=== PATIENT | female | born 1995 | race Caucasian/White ===

== ENCOUNTER 2024-05-25 13:57 | Outpatient (CLI) | payer OTHER, SELFPAY ==
--- NOTE | 2024-05-25 14:00 | CRLHL7_ITS ---
For Patients: As a result of the Century Cures Act, medical imaging exams and procedure reports are released immediately into your electronic medical record. You may view this report before your referring provider. If you have questions, please contact your health care provider. INDICATION: Dating and viability of . TECHNIQUE: Ultrasound OB pelvis transabdominal and transvaginal. Real-time rdz-scale imaging of the pelvis was performed. COMPARISON: None. FINDINGS: There is a single intrauterine gestation. The embryo demonstrates a regular cardiac rate measuring 178 beats per minute. The embryo`s crown rump length measurement of 2.0 cm corresponds to a gestational age of 8 weeks, 4 days with a sonographic due date of December 31, 2024. There is a normal appearing yolk sac. There are no gross abnormalities noted within the embryo at this early state of development. The placenta has not yet developed. There is subchorionic hemorrhage measuring 2.1 x 0.3 x 1.1 cm. Both ovaries have normal appearances. The right measures 3.7 x 1.9 x 2.4 cm and the left measures 2.6 x 1.4 x 2.3 cm. There are no suspicious fluid collections noted in the cul-de-sac. IMPRESSION: 1. Single viable intrauterine with an estimated gestational age of 8 weeks, 4 days and a heart rate of 178 beats per minute. 2. Subchorionic hemorrhage measuring 2.1 x 0.3 x 1.1 cm. Dictated by Ortega Ashley MD @ 05/26/2024 10:01:58 AM (Electronically Signed)
== END 2024-05-25 13:58 | disposition home or self-care (01) ==
LOC: US 13:57
PROVIDERS: Visit Provider Advanced Practice Midwife
DX: Z34.91 Encounter for supervision of normal pregnancy, unspecified, first trimester (principal); O20.9 Hemorrhage in early pregnancy, unspecified; Z3A.08 8 weeks gestation of pregnancy
CPT/HCPCS: 76817

== ENCOUNTER 2024-05-25 15:37 | Outpatient (CLI) | payer OTHER, SELFPAY | END 2024-05-25 15:38 | disposition home or self-care (01) | PROVIDERS: PCP Advanced Practice Midwife; Visit Provider Advanced Practice Midwife | DX: O20.9 Hemorrhage in early pregnancy, unspecified (principal); Z3A.08 8 weeks gestation of pregnancy | CPT/HCPCS: 83020; 83021; 85660; 86592; 86703; 86704; 86706; 86762; 86787; 86803; 86850; 86900; 86901; 87086; 87340 ==

== ENCOUNTER 2024-06-08 15:29 | Emergency (ER) | payer OTHER, SELFPAY ==
[2024-06-08] VITALS (17 sets, daily range): BP systolic 117–131; BP diastolic 71–85; PULSE 71–90; RESP 16; TEMP 36.6; O2SAT 97–99; BMI 37.8
--- OUTSIDE RECORDS SUMMARY | 2024-06-08 17:05 | XMS_ITS | Clinical Summary ---
Author Organization [facility] Address [place], [place] [address] Care Team Providers Care Medical Professionals Name Role Phone Clinic, No Pcp Or Primary Care Provider Unavaila ble Allergies Active Allergy Reactions Criticality Noted Date Comments Latex Rash Low 2011 Medications levonorgestrel (Kyleena) 17.5 mcg/24 hrs (5 yrs) 19.5 mg intrauterine device (IUD) Inject 1 Each intrauterine . Active dicloxacillin (DYNAPEN) 500 mg capsule TAKE 1 CAPSULE BY MOUTH EVERY 6 HOURS DIRECTED 1 Active ondansetron (ZOFRAN ODT) 4 mg disintegrating tabletIndications:V omiting and diarrhea Place 1 Tablet (4 mg) on the tongue every 8 hours if needed for Nausea/Vomit ing. 10 Tablet 2 Active Active Problems Problem Noted Date Diagnosed Date Pyelonephritis 02/03/2016 Family History Medical History Relation Name Comments Good Health Brother 3 Good Health Father Good Health Mother Relation Name Status Comments Brother 1 Alive Brother 2 Alive Brother 3 Father Alive Mother Alive Social History Tobacco Use Types Packs/Day Years Used Date Smoking Tobacco: Never Smokeless Tobacco: Never Tobacco Cessation:Counseling Given: No Alcohol Use Standard Drinks/Week Comments Never 0 (1 standard drink = 0.6 oz pur e alcohol) Social Connections Answer Date Recorded Frequency of Communication with Friends and Fami ly 0 10/16/2023 Financial Resource Strain Answer Date R ecorded Difficulty of Paying Living Expenses 3 10/16/2023 Difficulty of Paying Living Expenses Not on file 10/16/2023 Food Insecurity Answer Date Recorded Worried About Running Out of Food in the Last Ye ar 1 10/16/2023 Transportation Needs Answer Date Record ed Lack of Transportation (Medical) 1 10/16/2023 Housing Stability Answer Date Recorded Unable to Pay for Housing in the Last Year 1 10/16/2023 Comments No Sex and Gender Information Value Date Recorded Sex Assigned at Not on file Legal Sex Female 7:01 AM INFANTRY INDIRECT [employer] Gender Identity Not on file Sexual Orientation Not on file Obstetrics History Last Filed Vital Signs Vital Sign Reading Time Taken Comments Blood Pressure 124/83 04/11/2023 5:36 PM INFANTRY INDIRECT [employer] CREWMEMBER Pulse 91 04/11/2023 5:33 PM INFANTRY INDIRECT [employer] CREWMEMBER Temperature 36.3 C (97.3 F) 04/11/2023 5:33 PM INFANTRY INDIRECT [employer] CREWMEMBER Respiratory Rate 14 04/11/2023 5:33 PM INFANTRY INDIRECT FIRE CREWMEMBER Oxygen Saturation 96% 04/11/2023 5:33 PM INFANTRY INDIRECT FI[employer] CREWMEMBER Inhaled Oxygen Concentration - - Weight 89.8 kg (198 lb) 04/11/2023 5:33 PM INFANTRY INDIRECT [employer] CREWMEMBER Height 162.6 cm (5' 4) 04/11/2023 5:33 PM INFANTRY INDIRECT FI[employer] CREWMEMBER Body Mass Index 33.99 04/11/2023 5:33 PM INFANTRY INDIRECT FIRE CREWMEMBER Plan of Treatment Health Maintenance Due Date Last Done Comments Tdap 09/03/2007 Depression screening for age 12+ 2008 HIV for age 15-65 09/03/2011 Hepatitis C screening for ag e 18-79 2014 Tetanus booster 2016 Pap test for age 21-65 2017 COVID-19 vaccine series ( season) 2024 06/16/2021, 07/30/2020, 07/01/2020 Influenza for age 9-49 02/02/2024 BMI (ht and wt on same day) for age 18+ 04/11/2024 04/11/2023 Pneumococcal series for age 6-49 Aged Out No longer eligible b ased on patient's age to complete this topic Insurance [facility] [id number] [place] [id number] Advance Directives * Full Code (Latest Code Status on File) Date Activated Date Inactivated Comments 02/03/2016 2:53 PM 02/05/2016 12:35 PM Question Answer Comments Code Status Discussion: Not Discussed Care Teams Medical Professionals Relationship Specialty Start Date End Date Clinic, No Pcp Or . PCP - General 04/09/22
--- OUTSIDE RECORDS SUMMARY | 2024-06-08 17:05 | XMS_ITS | Clinical Summary ---
Author Organization [facility] [employer] Address [address] [place] [address] Care Team Providers Care Site Supervisor Name Role Phone Pcp, Pt Declines MD Primary Care Provider [phone] Source Comments You are receiving this document as you are listed as the primary care provider,follow-up provider, or the patient has been referred to you for consultation.This is in compliance with the Medicare and[facility] EHR Incentive Program,which states Providers who transition their patient to another setting of careor provider of care or refers their patient to another provider of care shouldprovide summary care record for each transition of care or referral. [facility] Allergies Active Allergy Reactions Criticality Noted Date Comments Latex Rash 10/04/2020 Medications Medication Sig Dispensed Refills Start Date End Date Status levonorgestrel (KYLEENA) 19.5 MG IUD 1 Each by Intrauterine route once. Active dicloxacillin (DYNAPEN) 500 MG capsule TAKE 1 CAPSULE BY MOUTH EVERY 6 HOURS DIRECTED 11/10/2020 Active Active Problems No known active problems Immunizations Name Administration Dates Next Due 9vHPV (Gardasil 9) 09/17/2017 Family History Medical History Relation Name Comments Cancer Father Prostate Clotting Disorder Maternal Grandmother S he didn't clot Spont Abortions Maternal Grandmother Stroke Maternal Grandmother Thyroid Disorder Maternal Grandmother High Cholesterol Paternal Grandfather High Cholesterol Paternal Grandmother Relation Name Status Comments Father Maternal Grandmother Paternal Grandfather Paternal Grandmother Social History Tobacco Use Types Packs/Day Years Used Date Smoking Tobacco: Never Smokeless Tobacco: Never Alcohol Use Standard Drinks/Week Comments Yes 0 (1 standard drink = 0.6 oz pur e alcohol) less than 5 drinks month Sex and Gender Information Value Date Recorded Sex Assigned at Female 12/13/2020 7:26 AM CDT Gender Identity Female 12/13/2020 7:26 AM CDT Sexual Orientation Straight 12/13/2020 7: 26 AM CDT Last Filed Vital Signs Vital Sign Reading Time Taken Comments Blood Pressure 136/78 01/08/2021 2:25 PM CDT Pulse 91 01/08/2021 2:25 PM CDT Temperature 37.1 C (98.8 F) 01/08/2021 2:25 PM CDT Respiratory Rate 16 01/08/2021 2:25 PM CDT Oxygen Saturation 97% 01/08/2021 2:25 PM CDT Inhaled Oxygen Concentration - - Weight - - Height - - Body Mass Index - - Plan of Treatment Health Maintenance Due Date Last Done Comments IPV (Polio) (3 of 3 - 4-dose series) 07/29/2002 01/26/2002, 11/25/2000 HepB (1) 09/03/2015 Adult Preventive Visit 10/04/2022 10/04/2020 Cervical Cancer Screening 10/05/2023 10/04/2020 COVID-19 Vaccine ( season) 2024 07/30/2020, 07/01/2020 Influenza (#1) 2024 DTaP/Tdap/Td (4 - Tdap) 09/18/2027 09/18/19 18, 01/26/2002, 11/25/2000 Zoster/Shingles (1 of 2) 2046 MCV4 Aged Out 09/17/2017 No longer eligi ble based on patient's age to complete this topic HPV Vaccine Completed 07/10/2018, 12/30/2017, 09/17/2017 HepA Aged Out 02/10/2019, 08/01/2018 No longer eligible based on patient's age to complete this topic Chlamydia Discontinued 10/04/2020 HIV Screening (Preventive Services) Completed 10/04/2020 Hep C Screening (Preventive Services) Completed 10/04/2020 Hib Aged Out No longer eligi ble based on patient's age to complete this topic Pneumococcal Aged Out No longer eligi ble based on patient's age to complete this topic Procedures Procedure Name Priority Date/Time Associated Diagnosis Comments HIV 1/2 AG/AB 4TH GEN Routine 10/04/2020 5:09 PM CDT Screen for STD (sexually transmitted disease) HEPATITIS C ANTIBODY, WITH REFLEX Routine 10/04/2020 5:09 PM CDT Screen for STD (sexually transmitted disease) CHLAMYDIA & GC (14 YEARS & OLDER) Routine 10/04/2020 5:03 PM CDT Screen for STD (sexually transmitted disease) PAP TEST Routine 10/04/2020 5:03 PM CDT Cervical cancer screening from Last 3 Months or Most Recently Relevant to Health Maintenance Results * HIV 1/2 Ag/Ab 4th Generation (10/04/2020 5:09 PM CDT) HIV 1/2 Antigen/Antib mian (4th generation) Negative (Non Reactive) Negative (Non Reactive) 10/04/2020 6:12 PM CDT [facility] Comment:HIV-1 p24 Antigen an d HIV-1/HIV-2 Antibody not detected Blood Venipuncture / Unknown 10/04/2020 5:09 PM CDT 10/04/2020 5:22 PM CDT Cecilia Barr APRN, [facility] [address] * Hepatitis C Antibody [HCAB] (10/04/2020 5:09 PM CDT) Hepatitis C Antibody Negative (Non Reactive) Negative (Non Reactive) 10/04/2020 6:12 PM CDT [facility] Comment:Antibodies to HCV no t detected. Does not exclude the possiblity of exposure to HCV. Blood Venipuncture / Unknown 10/04/2020 5:09 PM CDT 10/04/2020 5:22 PM CDT Cecilia Barr APRN, [facility] [id number] [facility] [address] * PAP Test (10/04/2020 5:03 PM CDT) Case Report Pap Case: [id number] Authorizing Provider: Cecilia Barr APRN, Collected: 10/04/2020 1703 [employer] [facility] Received: 10/04/2020 1802 Obstetrics/Gynec ology First Screen: Kaela Laws CT (ASCP) Specimen: Pap Test, Routine, Cervix/Endocervix 10/07/2020 11:50 AM CDT [facility] Pap Specimen Adequacy Satisfactory for evaluation, endocervical/marte sformation zone component present. 10/07/2020 11:50 AM CDT [facility] Pap Interpretation Negative for intraepithelial lesion or malignancy (NILM). 10/07/2020 11:50 AM CDT [facility] Pap Disclaimer The Pap test is a screening test designed to aid in the detection of cervical cancer and its precursor lesions. It is not a diagnostic procedure and should not be used as the sole means of detecting cervical cancer. Both false-positive and false-negative results may occur. 10/07/2020 11:50 AM CDT [facility] Gross Description The specimen is received in SurePath fixative and properly labeled. 1 Pap-stained SurePath slide is prepared. 10/07/2020 11:50 AM CDT [facility] Embedded Images 11:50 AM CDT [facility] Other Specimen Type ENTIRE ENDOCERVIX / Unknown 10/04/2020 5:03 PM CDT 10/04/2020 6:02 PM CDT Comment:LMP: Patient's last menstrual period was 09/19/2020. Cecilia Barr APRN, [facility] PATHOLOGY Performing Organization Address City/[facility]/ZIP Co de Phone Number [facility] [address] [place] [address], [facility] * Chlamydia and GC STD (10/04/2020 5:03 PM CDT) Chlamydia Trachomatis STD Not Detected Not Detected 10/04/2020 11:59 PM CDT [email or web address] [employer] [facility] N. gonorrhoeae STD Not Detected Not Detected 10/04/2020 11:[address] [facility] Swab STD ENTIRE ENDOCERVIX / Unknown Non-blood Collection / Unknown 10/04/2020 5:03 PM CDT 10/04/2020 5:[address] [facility] - 10/04/2020 11:59 PM CDT Test performed by [employer] Med[employer] Amplification (TMA). Cecilia Barr APRN, [facility] [facility]_1 Performing Organization Address City/State/[facility] Co de Phone Number [email or web address] [employer] [facility] [address] [id number] [phone] from Last 3 Months or Most Recently Relevant to Health Maintenance Care Teams Site Supervisor Relationship Specialty Start Date End Date Pcp, [place] [address] PCP - General 01/08/21
[2024-06-08 17:24] LABS: Basophils Absolute Auto 0.03 K/uL (0.00-0.30); Basophils Percent Auto 0.5 % (0.0-3.0); Eosinophils Absolute Auto 0.07 K/uL (0.00-0.50); Eosinophils Percent Auto 1.2 % (0.0-7.0); Hematocrit 38.6 % (33.0-51.0); Hemoglobin* 12.9 gm/dL (12.0-16.0); Immature Granulocytes Abs Auto 0.02 K/uL (0.00-0.30); Immature Granulocytes Pct Auto 0.3 %; Lymphocytes Absolute Auto 1.79 K/uL (0.90-2.90); Lymphocytes Percent Auto 30.7 % (20-44); Mean Corpuscular HGB Conc 33 gm/dL (32-36); Mean Corpuscular Hemoglobin 29 pg (26-34); Mean Corpuscular Volume 88 fL (80-100); Monocytes Percent Auto 14.4 % (0.0-11.0); Neutrophils Absolute Auto 3.08 K/uL (1.7-7.0); Neutrophils Percent Auto 52.9 % (42.0-72.0); Platelet Count* 158 K/uL (140-440); RDW Coefficient of Variation % 11.8 % (11.5-15.5); White Blood Count* 5.83 K/uL (4.50-11.00)
[2024-06-08] MEDS: LACTATED RINGERS 1000 ML 1,000 ML IV (17:25)
[2024-06-08 17:39] LABS: Chloride* 106 mmol/L (96-114)
[2024-06-08 17:40] LABS: Potassium* 3.5 mmol/L (3.6-5.1); Sodium* 134 mmol/L (135-149)
[2024-06-08 17:42] LABS: Creatinine* 0.4 mg/dL (0.5-1.5); Est. Creatinine Clearance* 182.43; Estimated Glomerular Filt Rate 139 ml/min
[2024-06-08 17:43] LABS: Anion Gap 7 mEq/L (7-15); Blood Urea Nitrogen* 8 mg/dL (5-24); Calcium* 8.7 mg/dL (8.4-10.6); Carbon Dioxide* 21 mmol/L (20-32); Glucose* 98 mg/dL (60-115)
[2024-06-08 18:03] LABS: PCR FLU A Negative PCR FLU A (Negative); PCR FLU B Negative PCR FLU B (Negative); PCR RSV Negative PCR RSV (Negative); SARS PCR* Negative SARS-CoV-2 (Negative)
[2024-06-08 18:08] LABS: Slide Review Reflex No
--- NOTE | 2024-06-08 19:07 | ED.SYNCOPE ---
HPI - Syncope General Date Seen: 06/08/24 Chief Complaint: Dizziness/Vertigo Stated Complaint: dizzy, almost fainted last night Time Seen by Provider: 06/08/24 16:22 Source: patient Mode of arrival: ambulatory Limitations: no limitations History of Present Illness HPI narrative: Patient is a 28-year-old female presenting to the emergency department for lightheadedness. She states last night she did a blood test were you Dry her own blood and send into a lab to find of the gender of her child. She is 10 weeks and this is her 1st . Has had a normal outpatient ultrasound and no other issues with the other than some mild vomiting. States after she did this test she is feeling very lightheaded like she was going to pass out. Symptoms were not improving at all today. Since they are persisting she will was told to come to the emergency department and she called the triage line. Has states she has had symptoms like this before multiple times but usually she passes out and symptoms go way about 30 seconds after that and she feels back to normal. Denies fevers, chills, cough, shortness of breath, weakness, abdominal pain, lightheadedness, dizziness, nausea. Does states she is feels like she has some mild chest pressure. No history of sudden cardiac in her family. No other concerns noted. Related Data Home Medications ?Medication ?Instructions ?Recorded ?Confirmed vit 168-iron 27 mg-folic cap PO 05/25/24 05/25/24 acid 800 mcg-omega3 235 mg capsule (One-A-Day -1) Allergies Allergy/AdvReac Type Severity Reaction Status Date / Time Latex, Natural Rubber Allergy Mild Rash Verified 05/25/24 14:57 Review of Systems Status of ROS: Reports: 10 or more systems reviewed and unremarkable except as noted in History and below [facility] Medical History Pyelonephritis ?N12 - Tubulo-interstitial nephritis, not specified as acute or chronic (ICD-10) Surgical History History of adenoidectomy ?Z90.89 - Acquired absence of other organs (ICD-10) [place] teeth extracted ?K08.409 - Partial loss of teeth, unspecified cause, unspecified class (ICD-10) History of tonsillectomy ?Z90.89 - Acquired absence of other organs (ICD-10) Family History Mother High blood pressure Father Prostate cancer Social History What is your current living situation?: I presently have a place to live Problems where you live: no known problems In the past 12 months, utilities in danger of being shut off: no In past 12 months, lack of transportation kept you from medical appts, meetings, work, or getting things needed for daily living: no In the past 12 mos, have been you worried that your food would run out before you had money to buy more?: never true In the past 12 mos, the food you bought just didn't last and you didn't have money to buy more?: never true Do you use any of these nicotine containing products: None How often do you have a drink containing alcohol: never AUDIT-C Alcohol total score: 0 Non-prescribed substance use: denies use How often does anyone, including family, friends and others, physically hurt you: never How often does anyone, including family, friends and others, insult or talk down to you: never How often does anyone, including family, friends and others, threaten you with harm: never How often does anyone, including family, friends and others, scream or curse at you: never Exam Narrative: Exam Narrative: Const: Well-nourished, Well-developed, in mild distress Eyes: PERRL, no conjunctival injection, and symmetrical lids HENT: Atraumatic external nose and ears. Moist mucous membranes. Neck: Symmetric, trachea midline, No thyromegaly. CVS: RRR, No murmurs or gallops. Peripheral pulses 2+ and equal in all extremities RESP: Unlabored respiratory effort. Clear to auscultation bilaterally. GI: Nontender/Nondistended, No rebound or guarding. MSK:Extremities w/o deformity, Normal Active ROM Skin: Warm, Dry. No rashes or lesions. Neuro: Normal Muscle tone, No focal neurological deficits. Psych: Awake, Alert, & Oriented x3. Appropriate mood and affect. Const: Vital Signs, click to edit/add: Vital Signs - 24 hr 06/08/24 15:50 06/08/24 17:12 06/08/24 17:20 Temperature 97.9 F Pulse Rate [Pulse Oximeter] 86 Pulse Rate [orthos tatic sitting Puls e Oximeter] Pulse Rate [orthos tatic sitting Righ t Pulse Oximeter] Pulse Rate [orthos tatic standing Pul se Oximeter] Respiratory Rate 16 Blood Pressure [Ri ght Upper Arm] 131/85 Blood Pressure [or thostatic lying Ri ght Arm] Blood Pressure [or thostatic sitting Right Arm] Blood Pressure [or thostatic standing Right Arm] Pulse Oximetry 98 97 97 Oxygen Delivery Me thod Room Air 06/08/24 17:23 06/08/24 17:25 06/08/24 17:30 Temperature Pulse Rate [Pulse Oximeter] Pulse Rate [orthos tatic sitting Puls e Oximeter] Pulse Rate [orthos tatic sitting Righ t Pulse Oximeter] Pulse Rate [orthos tatic standing Pul se Oximeter] Respiratory Rate Blood Pressure [Ri ght Upper Arm] Blood Pressure [or thostatic lying Ri ght Arm] Blood Pressure [or thostatic sitting Right Arm] Blood Pressure [or thostatic standing Right Arm] Pulse Oximetry 98 99 98 Oxygen Delivery Me thod 06/08/24 17:31 06/08/24 17:32 06/08/24 17:40 Temperature Pulse Rate [Pulse Oximeter] Pulse Rate [orthos tatic sitting Puls e Oximeter] 71 Pulse Rate [orthos tatic sitting Righ t Pulse Oximeter] 75 Pulse Rate [orthos tatic standing Pul se Oximeter] 90 Respiratory Rate Blood Pressure [Ri ght Upper Arm] Blood Pressure [or thostatic lying Ri ght Arm] 117/71 Blood Pressure [or thostatic sitting Right Arm] 117/71 Blood Pressure [or thostatic standing Right Arm] 119/85 Pulse Oximetry 98 98 Oxygen Delivery Me thod 06/08/24 17:50 06/08/24 18:00 06/08/24 18:02 Temperature Pulse Rate [Pulse Oximeter] Pulse Rate [orthos tatic sitting Puls e Oximeter] Pulse Rate [orthos tatic sitting Righ t Pulse Oximeter] Pulse Rate [orthos tatic standing Pul se Oximeter] Respiratory Rate Blood Pressure [Ri ght Upper Arm] Blood Pressure [or thostatic lying Ri ght Arm] Blood Pressure [or thostatic sitting Right Arm] Blood Pressure [or thostatic standing Right Arm] Pulse Oximetry 99 99 99 Oxygen Delivery Me thod 06/08/24 18:10 06/08/24 18:20 06/08/24 18:30 Temperature Pulse Rate [Pulse Oximeter] Pulse Rate [orthos tatic sitting Puls e Oximeter] Pulse Rate [orthos tatic sitting Righ t Pulse Oximeter] Pulse Rate [orthos tatic standing Pul se Oximeter] Respiratory Rate Blood Pressure [Ri ght Upper Arm] Blood Pressure [or thostatic lying Ri ght Arm] Blood Pressure [or thostatic sitting Right Arm] Blood Pressure [or thostatic standing Right Arm] Pulse Oximetry 99 98 98 Oxygen Delivery Me thod 06/08/24 18:32 06/08/24 19:11 Temperature Pulse Rate [Pulse Oximeter] Pulse Rate [orthos tatic sitting Puls e Oximeter] Pulse Rate [orthos tatic sitting Righ t Pulse Oximeter] Pulse Rate [orthos tatic standing Pul se Oximeter] Respiratory Rate Blood Pressure [Ri ght Upper Arm] Blood Pressure [or thostatic lying Ri ght Arm] Blood Pressure [or thostatic sitting Right Arm] Blood Pressure [or thostatic standing Right Arm] Pulse Oximetry 99 98 Oxygen Delivery Me thod Course Vital Signs Vital signs: Initial Vital Signs Temperature 97.9 F 06/08/24 15:50 Temperature Source Temporal Artery Scan 06/08/24 15:50 Pulse Rate 86 06/08/24 15:50 Respiratory Rate 16 06/08/24 15:50 Blood Pressure 131/85 06/08/24 15:50 Blood Pressure Mean 100 06/08/24 15:50 Blood Pressure Position Sitting 06/08/24 15:50 Pulse Oximetry 98 06/08/24 15:50 Oxygen Delivery Method Room Air 06/08/24 15:50 Vital Signs Temperature 97.9 F 06/08/24 15:50 Pulse Rate 86 06/08/24 15:50 Respiratory Rate 16 06/08/24 15:50 Blood Pressure 131/85 06/08/24 15:50 Pulse Oximetry 98 06/08/24 15:50 Oxygen Delivery Method Room Air 06/08/24 15:50 Temperature 97.9 F 06/08/24 15:50 Pulse Rate 75 06/08/24 17:31 Respiratory Rate 16 06/08/24 15:50 Blood Pressure 117/71 06/08/24 17:31 Pulse Oximetry 98 06/08/24 19:11 Oxygen Delivery Method Room Air 06/08/24 15:50 Medications Administered Medications: Discontinued Medications Generic Name Dose Route Start Last Admin Trade Name Sheeba PRN Reason Stop Dose Admin Lactated Ringer's 1,000 mls @ 1,000 mls/hr 06/08/24 16:32 06/08/24 19:10 Lactated Ringers 1000 Ml IV 06/08/24 17:31 Infused .Q1H ONE Infusion MDM - Syncope MDM Narrative Medical decision making narrative: Patient is a 28-year-old female with symptoms of lightheadedness and chest pain. Differential at this time includes but is not limited to electrolyte abnormalities, ACS, PE, dehydration. She is otherwise appearing well I believe PE is very unlikely. Vital signs are stable. Would be unnecessary radiation to both her and her fetus. Will do an EKG and troponin to look for signs of ACS. Also ordered a CBC, CMP, TSH, COVID/flu/RSV swab. A L fluids given for likely dehydration. Will do orthostatic blood pressures. Lab work has all returned showing no concerning abnormalities. Viral swabs are negative. EKG and troponin showed no concerning findings. I do not believe repeat troponin is necessary as symptoms have been going on since yesterday. Orthostatic vitals were within normal limits. She states she is feeling much better after the fluids. On my review vital signs are stable throughout time in in the emergency department. Oximetry stayed in the mid to high 90s. night monitor showed no concerning arrhythmias. She feels comfortable with discharge. Lab Data Labs: Lab Results 06/08/24 Range/Units 17:07 WBC 5.83 (4.50-11.00) K/uL RBC 4.40 (4.00-5.20) m/uL Hgb 12.9 (12.0-16.0) gm/dL Hct 38.6 (33.0-51.0) % MCV 88 (80-100) fL MCH 29 (26-34) pg MCHC 33 (32-36) gm/dL RDW Coeff of Leola 11.8 (11.5-15.5) % Plt Count 158 (140-440) K/uL Neut % (Auto) 52.9 (42.0-72.0) % Lymph % (Auto) 30.7 (20-44) % Oliver % (Auto) 14.4 H (0.0-11.0) % Eos % (Auto) 1.2 (0.0-7.0) % Baso % (Auto) 0.5 (0.0-3.0) % Neut # (Auto) 3.08 (1.7-7.0) K/uL Lymph # (Auto) 1.79 (0.90-2.90) K/uL Oliver # (Auto) 0.80 (0.00-0.90) K/UL Eos # (Auto) 0.07 (0.00-0.50) K/uL Baso # (Auto) 0.03 (0.00-0.30) K/uL Abs Immat Gran (auto) 0.02 (0.00-0.30) K/uL Imm/Tot Granulo (auto) 0.3 % Sodium 134 L (135-149) mmol/L Potassium 3.5 L (3.6-5.1) mmol/L Chloride 106 (96-114) mmol/L Carbon Dioxide 21 (20-32) mmol/L Anion Gap 7 (7-15) mEq/L BUN 8 (5-24) mg/dL Creatinine 0.4 L (0.5-1.5) mg/dL Estimated Creat Clear 182.43 Estimated GFR 139 ml/min Glucose 98 (60-115) mg/dL Calcium 8.7 (8.4-10.6) mg/dL SARS-CoV-2 (PCR) Negative SARS-CoV-2 (Negative) Influenza Type A (PCR) Negative PCR FLU A (Negative) Influenza Type B (PCR) Negative PCR FLU B (Negative) RSV (PCR) Negative PCR RSV (Negative) POC Troponin I 0.00 L (0.01-0.04) ng/ml ECG Data Attestation: I personally reviewed and interpreted this ECG as follows: Prior ECG tracings: not available for review Interpretation: Normal sinus rhythm with rate 78 beats per minute, normal intervals, normal axis, no ST or T-wave abnormalities. Discharge Plan Discharge Clinical Impression: Near syncope Patient Disposition: Home, Self-Care Condition: Improved Instructions: Near Syncope (ED) Additional Instructions: Make sure to stay well hydrated as some use symptoms may have been related to dehydration. can increase your risk of dehydration. I think you should follow-up with your primary care provider as you had multiple episodes like this before and may need further outpatient evaluation. Prescriptions: No Action One-A-Day -1 27 mg iron- 800 mcg-235 mg capsule PO Follow Up/Referrals: Provider,Not a Local [Primary Care Provider] - Stand Alone Forms: [facility] Info Instructions
== END 2024-06-08 19:27 | disposition home or self-care (01) ==
PROVIDERS: Emergency Provider Student in an Organized Health Care Education/Training Program
DX: R55 Syncope and collapse (principal)
CPT/HCPCS: 36415; 80048; 84443; 84484; 85025; 87631; 93005; 96360; 99284; J7120

== ENCOUNTER 2024-08-28 07:17 | Outpatient (CLI) | payer OTHER, SELFPAY ==
--- NOTE | 2024-08-28 07:15 | CRLHL7_ITS ---
For Patients: As a result of the Century Cures Act, medical imaging exams and procedure reports are released immediately into your electronic medical record. You may view this report before your referring provider. If you have questions, please contact your health care provider. INDICATION: survey TECHNIQUE: Conventional transabdominal two-dimensional grayscale ultrasound examination COMPARISON: 05/25/2024 FINDINGS: There is a living fetus with gestational age of 21 weeks 6 days by LMP and 22 weeks 3 days by today`s measurements. EDC based on LMP is 01/02/2025. BPD: 5.1 cm, 21 weeks 3 days Head circumference: 19.8 cm, 22 weeks Abdominal circumference: 17.9 cm, 22 weeks 5 days Femur length: 4.0 cm, 23 weeks HC/AC: 1.1 The weight is estimated at 526 grams, the 85th percentile. The heart rate is measured at 161 beats per minute and the rhythm appears regular. The head and spine are grossly intact. No gross facial abnormality is evident. The upper lip is intact. Four cardiac chambers are demonstrated. The heart and stomach appear to be on the same side. The diaphragm is intact. Two kidneys and a bladder are demonstrated. The cord insertion is normal and three cord vessels are noted. Four extremities are demonstrated. The amniotic fluid volume is within normal limits. The placenta is anterior with no evidence of previa. The cervical length is normal at 4.4 cm. IMPRESSION: 1. Living fetus with gestational age of 21 weeks 6 days by LMP and 22 weeks 3 days by today`s measurements. EDC based on LMP is 01/02/2025. 2. No anomaly evident. Dictated by Bran Self MD @ 08/29/2024 11:45:01 AM (Electronically Signed)
== END 2024-08-28 07:18 | disposition home or self-care (01) ==
LOC: US 07:18
PROVIDERS: Visit Provider Advanced Practice Midwife
DX: Z34.92 Encounter for supervision of normal pregnancy, unspecified, second trimester (principal); Z3A.22 22 weeks gestation of pregnancy
CPT/HCPCS: 76805

== ENCOUNTER 2024-10-15 08:42 | Outpatient (CLI) | payer OTHER, SELFPAY | END 2024-10-15 08:43 | disposition home or self-care (01) | LOC: NFLDREF 08:43 | PROVIDERS: Visit Provider Midwife | DX: Z34.03 Encounter for supervision of normal first pregnancy, third trimester (principal) | CPT/HCPCS: 86592 ==

== ENCOUNTER 2024-10-22 07:47 | Outpatient (CLI) | payer OTHER, SELFPAY | END 2024-10-22 07:48 | disposition home or self-care (01) | LOC: NFLDREF 10-25 20:08 | PROVIDERS: Visit Provider Midwife | DX: O99.810 Abnormal glucose complicating pregnancy (principal); Z3A.29 29 weeks gestation of pregnancy | CPT/HCPCS: 82951; 82952 ==

== ENCOUNTER 2024-11-12 13:48 | Outpatient (CLI) | payer OTHER, SELFPAY ==
--- NOTE | 2024-11-12 14:00 | CRLHL7_ITS ---
For Patients: As a result of the Century Cures Act, medical imaging exams and procedure reports are released immediately into your electronic medical record. You may view this report before your referring provider. If you have questions, please contact your health care provider. LMP: 03/28/2024. TEDDY by LMP: 01/02/2025. GA: 32w, 5d. Single. INDICATION: Follow-up growth, GDMA1. TECHNIQUE: Transabdominal obstetric imaging was obtained. CERVIX: Not visualized. POSITIONING: Breech. AMNIOTIC FLUID: 3.8 cm SDP. PLACENTA: Technique: Transabdominal. PLACENTA POSITION: Anterior. DOPPLER: heart rate: 149 bpm. Biometry: BPD: 8.5 cm. 34w, 1d, 81 percent. HC: 32.6 cm. 32w, 6d, >97 percent. AC: 31.8 cm. 35w, 5d, >97 percent. FL: 6.3 cm. 32w, 4d, 33 percent. FL/AC ratio: 19.78 percent. HC/AC ratio: 1.02. EFW: 2528 g. Weight: 5 lbs, 9 oz. age by this US: 34w, 6d. TEDDY by this US: 12/18/2024. Percentile by TEDDY: 95 percent. IMPRESSION: 1. Sonographic gestational age 34 weeks 6 days and sonographic due date 12/18/2024. Sonographic age is 15 days ahead of the clinical age. 2. Estimated weight 95th percentile. Abdominal circumference and head circumference both greater than 97th percentile. Ramirez Thomas M.D. Diagnostic Radiologist [email or web address] bM/Dictated by: Ramirez Thomas MD @ 11/12/2024 4:20:00 PM (Electronically Signed)
== END 2024-11-12 13:49 | disposition home or self-care (01) ==
LOC: US 13:48
PROVIDERS: Visit Provider Advanced Practice Midwife
DX: O24.410 Gestational diabetes mellitus in pregnancy, diet controlled (principal); O36.63X0 Maternal care for excessive fetal growth, third trimester, not applicable or unspecified; Z3A.32 32 weeks gestation of pregnancy
CPT/HCPCS: 76816

== ENCOUNTER 2024-12-03 07:17 | Outpatient (CLI) | payer OTHER, SELFPAY ==
--- NOTE | 2024-12-03 07:15 | CRLHL7_ITS ---
For Patients: As a result of the Century Cures Act, medical imaging exams and procedure reports are released immediately into your electronic medical record. You may view this report before your referring provider. If you have questions, please contact your health care provider. IMPRESSION: Sonographic gestational age 37 weeks 3 days and sonographic due date 12/21/2024. Sonographic age 12 days ahead of the clinical age. #2 estimated weight 90th percentile. Abdominal circumference greater than 97 percent. Dictated by Ramirez Thomas MD @ 12/03/2024 10:35:22 AM (Electronically Signed)
== END 2024-12-03 07:18 | disposition home or self-care (01) ==
LOC: US 07:17
PROVIDERS: Visit Provider Advanced Practice Midwife
DX: O24.410 Gestational diabetes mellitus in pregnancy, diet controlled (principal); Z3A.35 35 weeks gestation of pregnancy
CPT/HCPCS: 76816; 87081; 87653

== ENCOUNTER 2024-12-10 13:21 | Outpatient (CLI) | payer OTHER, SELFPAY ==
[2024-12-10 13:36] VITALS: BP 136/89; PULSE 95
[2024-12-10 14:02] LABS: Amnisure Rom* Negative
[2024-12-10 14:17] LABS: Trichomonas No Trichomonas Seen (None Seen)
--- NOTE | 2024-12-10 14:59 | CRLHL7_ITS ---
For Patients: As a result of the Century Cures Act, medical imaging exams and procedure reports are released immediately into your electronic medical record. You may view this report before your referring provider. If you have questions, please contact your health care provider. INDICATION: Possible rupture of membranes COMPARISON: Abdominal ultrasound on December 03, 2024 and priors TECHNIQUE: Limited obstetric ultrasound follow-up, transabdominal approach, utilizing grayscale and color Doppler FINDINGS: Sonographic imaging demonstrates a single living intrauterine gestation. The fetus has a regular cardiac rate of 130 beats per minute. The fetus has a vertex orientation. The imaged kidneys bladder and stomach are unremarkable. The placenta lies anterior without evidence of placenta previa or abruption. Amniotic fluid volume appears normal with single deepest pocket of 8.3 centimeters and DILSHAD of 18.7 centimeters. No pelvic free fluid. IMPRESSION: Unremarkable limited follow-up obstetric ultrasound with normal DILSHAD of 18.7 centimeters. Dictated by Rober Beckett MD @ 12/10/2024 4:12:18 PM (Electronically Signed)
--- NOTE | 2024-12-10 16:39 | P.OBLDTN_ITS ---
OB - Triage/Final Diagnosis Visit Information Narrative: Mary is a at 36 5/7 weeks gestation that presented to clinic for routine visit but reported she had thought her water broke this morning around 2 am. She reported feeling a gush of fluid that soaked her underwear and pants. She has then felt small amounts of leaking since then. She reports irregular contractions but these have been going on for the last week. She denies any bleeding or s/sx of infection. She did have intercourse last evening. She reports she did not call labor and delivery because she was not concerned and she figured she could just discuss in clinic at her appointment at 1345 today. On arrival to triage, NST was reactive. Amnisure was negative. Wet prep does show evidence of a yeast infection. Due to her story of possible ROM, discussed recommendation of exam by speculum to check for leaking or pooling. She agrees with plan. Update: Speculum exam shows no sign of pooling or leaking of fluid from cervix, however a membrane like discharge is visible. Will do DILSHAD to confirm adequate fluid. If DILSHAD is normal, the discharge may likely be mucous plug from the cervix. She may then discharge home with plan for OTC monistat x 7 days to treat active yeast infection. Encouraged her to return to clinic for routine . Discussed that we would consider IOL at 39 0/7 weeks due to macrosomia and GDM. She reports understanding. Assessment Yeast infection 36.5 weeks gestation GDM diet controlled Plan OTC Monistat vaginally x 7 days. RTC as scheduled for next US with visit in 1 week. Discussed likely plan of IOL at 39 0/7 weeks due to suspected macrosomia and GDM. Reviewed warning s/sx of when to return to triage. Encouraged to call if she is concerned about ROM as soon as it happens. Reason for evaluation: other (Possible ROM, >12 hours from time of susp ected ROM) Evaluation Laboratory results: Laboratory Tests 12/10/24 12/10/24 Range/Units 14:10 13:48 Membrane Rupture Negative Vaginal Trichomonas No Trichomonas Seen (None Seen) Vaginal Yeast Yeast Seen A (None Seen) Vaginal Clue Cells No Clue Cells Seen (None Seen) Vital signs: Vital Signs - 24 hr 12/10/24 13:36 Pulse Rate 95 Blood Pressure 136/89 Comments: Vitals Reviewed Constitutional:? Alert and oriented x3 HEENT:? Normocephalic, atraumatic Neck:? Supple Abdomen:? Soft, nontender, and gravid. Vertex by Thang's, confirmed with cervical exam. Extremities:? No edema or erythema Cervix: visually 1 cc : Normal external female anatomy. On speculum exam, the vaginal mucosa is coated in white clumpy discharge. There is mucous or membrane like discharge present near the cervix. Attempted to swab or remove without success. Cervix is about 1 cm visually, no pooling or presence of fluid with forced cough coming from the cervix. NST: 135 bpm/moderate variability/15x15 accelerations/no decelerations/contractions occasionally Imaging: IMPRESSION: Unremarkable limited follow-up obstetric ultrasound with normal DILSHAD of 18.7 centimeters. Dictated by Rober Beckett MD @ 12/10/2024 4:12:18 PM Final Diagnosis (1) Yeast infection of the vagina: Status: Acute (2) GDM, class A1: Status: Acute (3) 36 weeks gestation of : Status: Acute
--- NOTE | 2024-12-22 11:55 | PC.OBNST ---
NST Note NST Note Start: 12/10/24 13:28 Freq: ONCE Status: Discharge Protocol: Document 12/10/24 15:34 CUDDYH (Rec: 12/10/24 15:38 CUDDYH [id number]) NST Note 1 Para (# of births) 0 EDC 01/02/25 Gestational Age In 36 Weeks & 5 Days Weeks & Days High Risk Factors Diabetes - Gestational Insulin Patient Presented Leaking fluid with Complaint(s) of Reactive Yes Appropriate for Yes Gestational Age RN Griffin Castro RN Date 12/10/24 Reactive Yes Appropriate for Yes Gestational Age LONNIE Pandya RN Date 12/10/24 OB NST charge Yes Complete NST Note Yes via Write Note The provider's electronic signature indicates the NST is reactive/appropriate for gestational age. *Note to provider: If an addendum is required, open the patient's chart and click on the note under the Nurse/Allied Health tab.
== END 2024-12-10 15:34 | disposition home or self-care (01) ==
LOC: OB CLI 13:23 → OB 13:24
PROVIDERS: Visit Provider Advanced Practice Midwife
DX: O47.03 False labor before 37 completed weeks of gestation, third trimester (principal); Z3A.36 36 weeks gestation of pregnancy
CPT/HCPCS: 59025; 76815; 84112; 87210; G0463

== ENCOUNTER 2024-12-17 07:11 | Outpatient (CLI) | payer OTHER, SELFPAY ==
--- NOTE | 2024-12-17 07:15 | CRLHL7_ITS ---
For Patients: As a result of the Cures Act, medical imaging exams and procedure reports are released immediately into your electronic medical record. You may view this report before your referring provider. If you have questions, please contact your health care provider. OB ULTRASOUND BIOPHYSICAL PROFILE, 12/17/2024 CLINICAL HISTORY: GDMA 1. COMPARISON: 12/10/2024, 12/03/2024, 11/12/2024. TECHNIQUE: Real time rdz scale imaging of the fetus was performed. Transabdominal imaging performed. FINDINGS: TEDDY by LMP: 01/02/2025. GA: 37 weeks 5 days. Gestation: Single. Cervix: Not visualized. Positioning: Vertex. Amniotic Fluid: 6.6 cm SDP. BIOPHYSICAL PROFILE: Gross Body Movements: 2 Tone: 2 Respiratory Activity: 2 Amniotic Fluid: 2 Total Score: 8 Placenta: Technique: TA. Placenta Position: Anterior. Dopplers: Heart Rate: 139 bpm. IMPRESSION: Normal biophysical profile score of 8/8. Ramirez Thomas M.D. Diagnostic Radiologist [email or web address] Transcribed: 10:55 am DW/Dictated by: Ramirez Thomas MD @ 12/17/2024 9:30:00 AM (Electronically Signed)
== END 2024-12-17 07:12 | disposition home or self-care (01) ==
LOC: US 07:14
PROVIDERS: Visit Provider Advanced Practice Midwife
DX: O24.410 Gestational diabetes mellitus in pregnancy, diet controlled (principal); Z3A.37 37 weeks gestation of pregnancy
CPT/HCPCS: 76819

== ENCOUNTER 2024-12-25 20:42 | Inpatient (IN) | payer OTHER, SELFPAY ==
[2024-12-25 21:05] VITALS: BP 146/88; PULSE 80
[2024-12-25 21:18] VITALS: BP 142/91; PULSE 81; RESP 18; TEMP 37.3
--- NOTE | 2024-12-25 21:54 | P.LDBA_ITS ---
Subjective History of Present Illness Date Seen: 12/25/24 Narrative: Mary is being admitted to Labor and Delivery for IOL for GDMA1. She is a 29 year old at 38.6 weeks gestation. Her full history and physical was dictated by Dylan Mclain CNM on 12/17/24. Please see this for details. She states that her contractions have increased some in intensity and frequency since her last appointment but are still relatively mild and irregular. Declines a recheck of her cervix at this time. We reviewed options for IOL including Cytotec, Cervidil, Cook catheter, and Pitocin. Reviewed risks and benefits of each and answered questions. She would like to proceed with vaginal Cytotec and is open to Pitocin titration in the morning. She is supported by her . Blood pressures so far have been elevated in the 140's. No diagnosis but will run labs at this time since they were collected when she had her IV placed. Discussed Gestational HTN and Preeclampsia and possibility of risking out of CNM care and/or waterbirth based on these. Specific Issues/Plans G1 : Sherif It is a boy! IOL scheduled on 12/26/24, consent signed- switched to 12/25 at 1930 for cervical ripening. H&P done by Dylan Mclain CNM on 12/17/24 #. GDM A1 (Diet controlled) ? Nutrition consult? Weekly testing starting at 40 weeks. ? Growth US every 4 weeks starting at 28 weeks ? Delivery recommended 39 0/7-40 6/7 weeks: Recommend IOL at 39 weeks due to suspected macrosomia with GDM #. Obesity, Pre- BMI 37.6 ? Weekly testing starting at 37 weeks. testing worksheet completed. Consider growth US at 32 weeks? Recommend baby ASA Delivery recommended: elective delivery considered at >39 0/7 weeks.? #. Varicella non-immune Recommend vaccination # Gap in visits seen at 8wks then not until 21.6 weeks # LGA-12/03/24: normal fluid levels, vertex position, 90%ile EFW, HC 94%, AC >97%. # SDP 8.3 on 12/10, DILSHAD 18.7. COVID: initial series, one booster, declined booster today. Flu: declined TDAP:given Pap: Due ? OB - Problem Based A/P Additional Plan (1) Encounter for induction of labor: Status: Acute (2) LGA (large for gestational age) fetus: Status: Acute (3) GDM, class A1: Status: Acute (4) Obesity affecting : Status: Acute Plan ASSESSMENT:? at 38.6 weeks gestation? GBS negative? ?complicated by: GDM A1, obesity (BMI 37.6 prepregnancy), varicalla nonimmune, suspected LGA (AC>97%) Elevated BP on admit. Labs ordered.? Medical IOL? Blood type:?A+ ?? PLAN:? 1. Reviewed risks and benefits of IOL with Pitocin vs Cytotec vs Cytotec vs Cook catheter. Pt prefers Cytotec. Pitocin to follow if needed.? 2. Encouraged therapeutic rest overnight. 3. Desires water . Consent signed. Hep C negative.? 4. Candidate for analgesia of choice. Planning unmedicated .? 5. Monitor blood pressures. Waiting on lab results. No diagnosis yet. Reviewed possibility of gestational hypertension or preeclampsia based on labs and/or blood pressures. 6. Blood sugar monitoring per protocol. Reviewed and encouraged maintaining good glycemic control throughout labor.? 6. Anticipate ? 7. IV in place 8. Continuous monitoring for GDM pre protocol. Delivery/Labor/Induction Plan Plan: induction Induction method: per misoprostol protocol OB Result Labs Blood Type: A (+) positive Rubella: immune RPR/VDLR: nonreactive GBS Status: negative HBsAG: negative OB Exam Physical Exam Vital signs: Temp Pulse Resp BP 99.1 F 81 18 142/91 H 12/25/24 21:18 12/25/24 21:18 12/25/24 21:18 12/25/24 21:18 Narrative: Psychiatric:? Alert and oriented x3? HEENT:? Normocephalic, atraumatic? Neck:? Supple without adenopathy or thyromegaly? Lungs:? Clear to auscultation bilaterally? Heart:? Regular rate and rhythm, no murmur, rub or gallop? Abdomen:? Soft, nontender, and gravid? Extremities:? No edema or erythema? Detailed Labor and Delivery Exam Patient Gravid: yes Contraction Frequency: 2-5, irregular Contraction intensity: Mild Fetus (Single) Heart Rate Baseline: 130 Monitor Accelerations: Present Monitor Decelerations: None [place] Variability: Moderate (6-25)
[2024-12-25 22:09] VITALS: BMI 42.6
[2024-12-25 22:09] LABS: Hematocrit* 35.8 % (33.0-51.0); Hemoglobin* 12.3 gm/dL (12.0-16.0); Immature Granulocytes Pct Auto 2.0 %; Mean Corpuscular HGB Conc 34 gm/dL (32-36); Mean Corpuscular Hemoglobin 31 pg (26-34); Mean Corpuscular Volume 90 fL (80-100); RDW Coefficient of Variation % 12.2 % (11.5-15.5); Red Blood Count* 3.99 m/uL (4.00-5.20); White Blood Count* 11.31 K/uL (4.50-11.00)
[2024-12-25 22:13] LABS: Immature Granulocytes Abs Auto 0.20 K/uL (0.00-0.30); Lymphocytes Absolute Auto 2.60 K/uL (0.90-2.90); Slide Review Reflex No
[2024-12-25 22:17] LABS: Blood Urea Nitrogen* 16 mg/dL (5-24); Creatinine* 0.6 mg/dL (0.5-1.5); Est. Creatinine Clearance* 120.54; Estimated Glomerular Filt Rate 125 ml/min
[2024-12-25 22:18] LABS: Alanine Aminotransferase* 11 U/L (4-35); Aspartate Amino Transferase* 22 U/L (12-35)
[2024-12-26] VITALS (127 sets, daily range): BP systolic 90–171; BP diastolic 44–106; PULSE 63–118; RESP 16–18; TEMP 36.6–37.3; O2SAT 92–99
[2024-12-26 01:32] LABS: Protein Creatinine Ratio Urine 0.26 (0-0.19)
[2024-12-26] MEDS: ONDANSETRON 2 MG/ML inj 4 MG IV (04:18)
--- NOTE | 2024-12-26 07:38 | PM.OBPNL ---
Subjective Date Seen: 12/26/24 Narrative: Mary was admitted to Labor and Delivery for IOL for GDMA1. She is a 29 year old at 39 0/7 weeks gestation. She has received 3 doses of oral cytotec, last at 0415. SROM clear fluid at around 2 am. She has also received one dose of morphine. She did have a few mildly elevated BPs, but they did not fully span a 4 hour period so she does not yet meet criteria for GHTN. Preeclampsia labs have all been normal. Lan has been supporting her in the room. She is feeling contractions abdominally. No BORRERO, vision changes or RUQ pain. Specific Issues/Plans [id number]: Sherif It is a boy!IOL scheduled on 12/26/24, consent signed-switched to 12/25 at 1930 for cervical ripening. H&P done by Dylan Mclain CNM on 12/17/24 #. GDM A1 (Diet controlled) ? Nutrition consult? Weekly testing starting at 40 weeks. ? Growth US every 4 weeks starting at 28 weeks ? Delivery recommended 39 0/7-40 6/7 weeks: Recommend IOL at 39 weeks due to suspected macrosomia with GDM #. Obesity, Pre- BMI 37.6 ? Weekly testing starting at 37 weeks. testing worksheet completed. Consider growth US at 32 weeks? Recommend baby ASA Delivery recommended: elective delivery considered at >39 0/7 weeks.? #. Varicella non-immune Recommend vaccination # Gap in visits seen at 8wks then not until 21.6 weeks # LGA-12/03/24: normal fluid levels, vertex position, 90%ile EFW, HC 94%, AC >97%. # SDP 8.3 on 12/10, DILSHAD 18.7. COVID: initial series, one booster, declined booster today. Flu: declined TDAP:given Objective Exam: Objective: Constitutional: Alert and oriented x3, no distress, coping well Vital signs stable, see nurse documentation Abdomen: gravid, contractions palpate mild with contractions and soft between Cervix: 3 cm/75%/-2 station/vertex with palpable sutures, EFW 8.5#, large amount of clear fluid escaped with exam which encouraged head to be more applied to cervix. NST: 120 bpm/moderate variability/accelerations present/decelerations absent/contractions q 1-4 min x 40-60 sec Vital Signs: Last Vital Signs Temp 98.1 F 12/26/24 07:21 Pulse 63 12/26/24 04:04 Resp 16 12/26/24 06:43 BP 93/50 L 12/26/24 04:04 Plan Plan: ASSESSMENT:? at 39 0/7 weeks gestation? GBS negative? ?complicated by: GDM A1, obesity (BMI 37.6 prepregnancy), varicella nonimmune, suspected LGA (AC>97%) Medical IOL? Blood type:?A+ ?? PLAN:? 1. Initiate pitocin per protocol 2. Encouraged rest alternating with activity, hydration and nourishment 3. Desires water . Consent signed. Hep C negative.? 4. Candidate for analgesia of choice. Planning unmedicated .? 5. Blood sugar monitoring per protocol. Reviewed and encouraged maintaining good glycemic control throughout labor.? 6. Anticipate ? 7. Continuous monitoring per GDM protocol. 8. Pt does not meet criteria for GHTN at this time. One more elevation in BP will meet this criteria.
[2024-12-26] MEDS: OXYTOCIN 30 unit/500 ML in NS 30 UNIT/500 ML BAG IVPB (08:53)
[2024-12-26] MEDS: LACTATED RINGERS 1000 ML 1,000 ML 125 ML IV ×2 (08:53→12:49)
--- NOTE | 2024-12-26 16:13 | PM.OBPNL ---
Subjective Date Seen: 12/26/24 Narrative: Mary was admitted to Labor and Delivery for IOL for GDMA1. She is a 29 year old at 39 0/7 weeks gestation. She has received 3 doses of oral cytotec, last at 0415. SROM clear fluid at around 2 am. She has also received one dose of morphine. She has now met criteria for GHTN with mild elevations >4hrs apart. Preeclampsia labs have all been normal. Lan has been supporting her in the room. She has been on pitocin 3ml/h since this morning with increasing intensity and frequency. She is now coping well in the tub. Specific Issues/Plans [id number]: Sherif It is a boy!IOL scheduled on 12/26/24, consent signed-switched to 12/25 at 1930 for cervical ripening. H&P done by Dylan Mclain CNM on 12/17/24 #. GDM A1 (Diet controlled) ? Nutrition consult? Weekly testing starting at 40 weeks. ? Growth US every 4 weeks starting at 28 weeks ? Delivery recommended 39 0/7-40 6/7 weeks: Recommend IOL at 39 weeks due to suspected macrosomia with GDM #. Obesity, Pre- BMI 37.6 ? Weekly testing starting at 37 weeks. testing worksheet completed. Consider growth US at 32 weeks? Recommend baby ASA Delivery recommended: elective delivery considered at >39 0/7 weeks.? #. Varicella non-immune Recommend vaccination # Gap in visits seen at 8wks then not until 21.6 weeks # LGA-12/03/24: normal fluid levels, vertex position, 90%ile EFW, HC 94%, AC >97%. # SDP 8.3 on 12/10, DILSHAD 18.7. COVID: initial series, one booster, declined booster today. Flu: declined TDAP:given Objective Exam: Objective: Constitutional: Alert and oriented x3, no distress, coping well Vital signs stable, see nurse documentation Abdomen: gravid, contractions palpate moderate with contractions and soft between Cervix: 5.5 cm/80%/-1 station/per nursing exam at 1449 NST: 150 bpm/moderate variability/accelerations present/decelerations absent/contractions every 2-4 min Vital Signs: Last Vital Signs Temp 98.3 F 12/26/24 14:07 Pulse 74 12/26/24 14:08 Resp 16 12/26/24 06:43 BP 144/88 H 12/26/24 14:08 Pulse Ox 98 12/26/24 11:04 Plan Plan: ASSESSMENT:? at 39 0/7 weeks gestation? GBS negative? ?complicated by: GDM A1, obesity (BMI 37.6 prepregnancy), varicella nonimmune, suspected LGA (AC>97%) Medical IOL? Labor complicated by GHTN, IOL, GDM Blood type:?A+ ?? PLAN:? 1. Continue pitocin per protocol 2. Encouraged rest alternating with activity, hydration and nourishment 3. Desires water . Consent signed. Hep C negative.? 4. Candidate for analgesia of choice. Planning unmedicated .? 5. Blood sugar monitoring per protocol. 6. Anticipate ? 7. Continuous monitoring per GDM protocol.
[2024-12-26] MEDS: INSULIN ASPART 100 UNIT/ML SUBCUT (16:45)
[2024-12-26] MEDS: LABETALOL HCL 5 MG/ML inj IVP ×2 (18:16→20:00)
[2024-12-26] MEDS: MAGNESIUM IV 4 GM/100 ML PIGGYBACK IVPB (18:22)
[2024-12-26 18:29] LABS: Hematocrit* 39.3 % (33.0-51.0); Hemoglobin* 13.5 gm/dL (12.0-16.0); Mean Corpuscular HGB Conc 34 gm/dL (32-36); Mean Corpuscular Hemoglobin 31 pg (26-34); Mean Corpuscular Volume 90 fL (80-100); Red Blood Count* 4.37 m/uL (4.00-5.20); White Blood Count* 21.78 K/uL (4.50-11.00)
[2024-12-26 18:35] LABS: Slide Review Reflex No
[2024-12-26 18:40] LABS: Alanine Aminotransferase* 19 U/L (4-35); Aspartate Amino Transferase* 31 U/L (12-35); Blood Urea Nitrogen* 13 mg/dL (5-24); Creatinine* 0.6 mg/dL (0.5-1.5); Est. Creatinine Clearance* 120.54; Estimated Glomerular Filt Rate 125 ml/min
--- NOTE | 2024-12-26 18:42 | PM.OBPNL ---
Subjective Date Seen: 12/26/24 Narrative: Mary was admitted to Labor and Delivery for IOL for GDMA1. She is a 29 year old at 39 0/7 weeks gestation. She has received 3 doses of oral cytotec and has been on pitocin since this morning. SROM clear fluid at around 2 am. She has also received one dose of morphine. Contractions continued to be regular and strong until around 6 pm, coinciding with consistent severe range BPs. She has been diagnosed now with pre-eclampsia with severe features. She was assisted out of the tub, given IV labetolol, IV magnesium started, stat labs collected. She is supported by Lan and Tia. She denied BORRERO, vision changes and RUQ pain. Now contractions are about every 2-5 minutes. Specific Issues/Plans [id number]: Sherif It is a boy!IOL scheduled on 12/26/24, consent signed-switched to 12/25 at 1930 for cervical ripening. H&P done by Dylan Mclain CNM on 12/17/24 #. GDM A1 (Diet controlled) ? Nutrition consult? Weekly testing starting at 40 weeks. ? Growth US every 4 weeks starting at 28 weeks ? Delivery recommended 39 0/7-40 6/7 weeks: Recommend IOL at 39 weeks due to suspected macrosomia with GDM #. Obesity, Pre- BMI 37.6 ? Weekly testing starting at 37 weeks. testing worksheet completed. Consider growth US at 32 weeks? Recommend baby ASA Delivery recommended: elective delivery considered at >39 0/7 weeks.? #. Varicella non-immune Recommend vaccination # Gap in visits seen at 8wks then not until 21.6 weeks # LGA-12/03/24: normal fluid levels, vertex position, 90%ile EFW, HC 94%, AC >97%. # SDP 8.3 on 12/10, DILSHAD 18.7. COVID: initial series, one booster, declined booster today. Flu: declined TDAP:given Objective Exam: Objective: Constitutional: Alert and oriented x3, minimal distress, coping well Vital signs stable, see nurse documentation Abdomen: gravid, contractions palpate moderate with contractions and soft between Cervix: 7 cm/80%/2 station/vertex palpable sutures, head not well applied to cervix NST: 140 bpm/moderate variability/accelerations present/decelerations absent/contractions every 2-5 min Reflexes of bilateral lower extremities are hyper with +2 beats clonus. Vital Signs: Last Vital Signs Temp 98.5 F 12/26/24 17:16 Pulse 85 12/26/24 18:24 Resp 16 12/26/24 06:43 BP 142/91 H 12/26/24 18:24 Pulse Ox 94 12/26/24 18:38 Plan Plan: ASSESSMENT:? at 39 0/7 weeks gestation? GBS negative? ?complicated by: GDM A1, obesity (BMI 37.6 prepregnancy), varicella nonimmune, suspected LGA (AC>97%) Medical IOL? Labor complicated by Pre-eclampsia with severe features, IOL, GDM Blood type:?A+ ?? PLAN:? 1. Continue pitocin per protocol 2. Dr Pearson consulted for severe range BP. she has initiated the protocol with labetalol IV, magnesium prophylaxis, and more frquent VS checks per protocol. Stat labs have been sent and are to be drawn q 6 hours. PCR unable to be drawn due to ROM status and no epidural at this time. Dr Pearson agrees to manage the BP piece while I continue to manage labor for patient continuity. 3. Reviewed with Mary and Lan the indications for interventions and risks associated with Pre-e with SF 4. Candidate for analgesia of choice. Planning unmedicated .? 5. Blood sugar monitoring per protocol. 6. Anticipate ? 7. Continuous monitoring
[2024-12-26] MEDS: MAGNESIUM Infusion 40 GM/1,000 ML IV.SOLN IVPB (18:52)
[2024-12-26] MEDS: LACTATED RINGERS 1000 ML 1,000 ML 575 ML IV (21:02)
[2024-12-26] MEDS: LIDOCAINE 2% (PF) 5 ML VIAL EPIDURAL (21:29)
[2024-12-26] MEDS: ROPIVACAINE 0.2% 100 ml 100 ML 12 MG EPIDURAL (21:30)
--- NOTE | 2024-12-26 21:41 | P.ANBPRC_ITS ---
PFSH PFS Medical History Pyelonephritis ?N12 - Tubulo-interstitial nephritis, not specified as acute or chronic (ICD- 10) Surgical History History of adenoidectomy ?Z90.89 - Acquired absence of other organs (ICD-10) [place] teeth extracted ?K08.409 - Partial loss of teeth, unspecified cause, unspecified class (ICD- 10) History of tonsillectomy ?Z90.89 - Acquired absence of other organs (ICD-10) Family History Mother High blood pressure Father Prostate cancer Social History What is your current living situation?: I presently have a place to live Problems where you live: no known problems In the past 12 months, utilities in danger of being shut off: no In past 12 months, lack of transportation kept you from medical appts, meetings, work, or getting things needed for daily living: no In the past 12 mos, have been you worried that your food would run out before you had money to buy more?: never true In the past 12 mos, the food you bought just didn't last and you didn't have money to buy more?: never true Smoking Status: Never smoker Do you use any of these nicotine containing products: None How often do you have a drink containing alcohol: never AUDIT-C Alcohol total score: 0 Non-prescribed substance use: denies use How often does anyone, including family, friends and others, physically hurt you : never How often does anyone, including family, friends and others, insult or talk down to you: never How often does anyone, including family, friends and others, threaten you with harm: never How often does anyone, including family, friends and others, scream or curse at you: never Meds Home Medications and Allergies Home Medications ?Medication ?Instructions ?Recorded ?Confirmed ?Type vit 168-iron 27 mg-folic 1 cap PO 05/25/24 History acid 800 mcg-omega3 235 mg capsule (One-A-Day -1) aspirin 81 mg chewable tablet 81 mg PO QDAY 09/25/24 0 12/25/24 History Held on 12/10/24. Instructions: not taking Blood Glucose Meter #1 ea 10/22/24 12/24/24 Rx Test Strips #100 ea 10/22/24 12/24/24 Rx lancets #100 ea 10/22/24 12/24/24 Rx Allergies Allergy/AdvReac Type Severity Reaction Status Date / Time Latex, Natural Rubber Allergy Mild Rash Verified 12/26/24 01:17 Results Labs Labs: Laboratory Results - last 24 hr 12/25/24 12/25/24 12/25/24 01:00 21:28 21:38 WBC 11.31 H RBC 3.99 L Hgb 12.3 Hct 35.8 MCV 90 MCH 31 MCHC 34 RDW Coeff of [place] 12.2 Plt Count 148 Neut % (Auto) 67.3 Lymph % (Auto) 22.7 [place] % (Auto) 7.3 Eos % (Auto) 0.4 Baso % (Auto) 0.3 Neut # (Auto) 7.60 H Lymph # (Auto) 2.60 [place] # (Auto) 0.80 Eos # (Auto) 0.00 Baso # (Auto) 0.00 Abs Immat Gran (auto) 0.20 Imm/Tot Granulo (auto) 2.0 BUN 16 Creatinine 0.6 Estimated Creat Clear 120.54 Estimated GFR 125 AST 22 ALT 11 Urine Creatinine 68.9 Protein/Creatinin Ratio 0.26 H Urine Total Protein 18 Blood Type A Positive Antibody Screen NEGATIVE 12/26/24 18:22 WBC 21.78 H RBC 4.37 Hgb 13.5 Hct 39.3 MCV 90 MCH 31 MCHC 34 RDW Coeff of [place] Plt Count 150 Neut % (Auto) Lymph % (Auto) [place] % (Auto) Eos % (Auto) Baso % (Auto) Neut # (Auto) Lymph # (Auto) [place] # (Auto) Eos # (Auto) Baso # (Auto) Abs Immat Gran (auto) Imm/Tot Granulo (auto) BUN 13 Creatinine 0.6 Estimated Creat Clear 120.54 Estimated GFR 125 AST 31 ALT 19 Urine Creatinine Protein/Creatinin Ratio Urine Total Protein Blood Type Antibody Screen Vital Signs Vital Signs: Last Vital Signs Temp 98.1 F 12/26/24 20:24 Pulse 93 12/26/24 21:38 Resp 18 12/26/24 20:24 BP 127/70 12/26/24 21:38 Pulse Ox 97 12/26/24 21:37 Weight: 112.672 kg Height: 162.56 cm Anesthesia Procedures Epidural Insertion Patient Location: OB Start Time: 21:00 Stop Time: 22:00 Start Date: 12/26/24 Stop Date: 12/26/24 Reason for Block: procedure for pain Patient Position: sitting Performed By: Ayse Evans Preanesthetic Checklist: IV checked, risks and benefits discussed, monitors and equipment checked, pre-op evaluation, timeout performed and anesthesia consent Prep: chlorhexidine gluconate Monitoring: blood pressure monitoring, continuous pulse oximetry and heart rate Approach: midline Vertebral Space: lumbar (1-5) Epidural Technique: CONCHIS saline Needle Type: Tuohy needle Injection Technique: continuous catheter (continuous catheter) Needle gauge: 17 Needle Length (cm): 10 cm Needle Insertion Depth (cm): 8 Catheter Gauge: 19 Catheter Type: multi-orifice Catheter at skin depth (cm): 15 Test Dose Result: negative and lidocaine 1.5% with epinephrine 1 to 200,000
[2024-12-26] MEDS: PHENYLEPHRINE 100 MCG/ML SYRINGE IVP ×4 (21:50→22:19)
[2024-12-26] MEDS: ePHEDrine sulfate 5 MG/ML inj 10 MG IVP ×2 (21:57→22:06)
[2024-12-26] MEDS: LACTATED RINGERS 1000 ML 1,000 ML 75 ML IV (22:38)
--- NOTE | 2024-12-26 22:42 | P.OBPN_ITS ---
Subjective Date Seen: 12/26/24 Narrative: Mary was admitted to Labor and Delivery for IOL for GDMA1. She is a 29 year old at 39 0/7 weeks gestation. She has received 3 doses of oral cytotec and has been on pitocin since this morning. SROM clear fluid at around 2 am 11/26/24. She has also received one dose of morphine. Severe range blood pressures were treated x 2 with labetalol. Contractions also seemed to slow down also around this time. Mary desired an epidural so tat has been placed and Mary is now sleeping. She had significant hypotension post placement and was treated with multiple doses of phelylephrine and ephedrine, as well as position changes and an IV bolus due to category 2 tracing. BPs have now stabilized. Specific Issues/Plans [id number]: Sherif It is a boy!IOL scheduled on 12/26/24, consent signed-switched to 12/25 at 1930 for cervical ripening. H&P done by Dylan Mlcain CNM on 12/17/24 #. GDM A1 (Diet controlled) ? Nutrition consult? Weekly testing starting at 40 weeks. ? Growth US every 4 weeks starting at 28 weeks ? Delivery recommended 39 0/7-40 6/7 weeks: Recommend IOL at 39 weeks due to suspected macrosomia with GDM #. Obesity, Pre- BMI 37.6 ? Weekly testing starting at 37 weeks. testing worksheet completed. Consider growth US at 32 weeks? Recommend baby ASA Delivery recommended: elective delivery considered at >39 0/7 weeks.? #. Varicella non-immune Recommend vaccination # Gap in visits seen at 8wks then not until 21.6 weeks # LGA-12/03/24: normal fluid levels, vertex position, 90%ile EFW, HC 94%, AC >97 %. # SDP 8.3 on 12/10, DILSHAD 18.7. COVID: initial series, one booster, declined booster today. Flu: declined TDAP:given Objective Exam: Objective: Constitutional: Alert and oriented x3, no distress, coping well Vital signs stable, see nurse documentation Abdomen: gravid, contractions palpate moderate with contractions and soft between Cervix: 7/80/-1 with last exam NST: 140 bpm/moderate with few short periods of decreased variability/accelerations not currently present/variable decelerations that are periodic, occasional lates/contractions irregular with clustering noted Vital Signs: Last Vital Signs Temp 98.6 F 12/26/24 21:54 Pulse 84 12/26/24 22:40 Resp 18 12/26/24 21:54 BP 124/59 L 12/26/24 22:40 Pulse Ox 95 12/26/24 22:38 Plan Plan: ASSESSMENT:? at 39 0/7 weeks gestation? GBS negative? ?complicated by: GDM A1, obesity (BMI 37.6 prepregnancy), varicella nonimmune, suspected LGA (AC>97%) Medical IOL? Labor complicated by Pre-eclampsia with severe features, IOL, GDM, hypotension post epidural Blood type:?A+ ?? PLAN:? 1. Continue pitocin per protocol 2. Will collect PCR with urinary catheter placement. Will also do a VE for further assessment 3. Continue with epidural anesthesia 4. Continue with magnesium prophylaxis 5. Blood sugar monitoring per protocol. 6. Anticipate ? 7. Continuous monitoring
[2024-12-26 23:23] LABS: Protein Creatinine Ratio Urine 1.07 (0-0.19)
[2024-12-27] VITALS (21 sets, daily range): BP systolic 112–141; BP diastolic 57–92; PULSE 82–116; RESP 16–18; TEMP 36.4–37.2; O2SAT 95–100
--- NOTE | 2024-12-27 00:53 | W.PM.OBVAGDE ---
OB Procedure Vag Delivery Mother Details Mother Details: The patient is a 29 year-old, 1, Para 0, admitted on 12/25/24 at 38 6/7 Days gestation for IOL for GDMA1. She progressed with misoprostal x 3, then pitocin. She developed preeclampsia with severe features in the first stage. magnesium was started and she received two doses of labetalol. After receiving her epidural, she developed hypotension and received multiple doses of phenylephrine and pseudoephedrine to stabilize it. her BP remains normotensive . Dr Pearson has been managing the BPs and I have been managing the labor. Weeks Gestation: 39.1 Admission Date: 12/25/24 Additional Details Amniotic Membrane Status: SROM Amniotic Membrane Rupture Date: 12/26/24 Amniotic Membrane Rupture Time: 01:57 Amniotic Membrane Fluid Description: Clear Analgesia/Anesthesia Type: Epidural Waterbirth: No Pitcoin: Yes Intrapartal Events: Labor Induction Induction Method: per misoprostol protocol and per pitocin protocol Labor Onset: 15:00 Complete: 23:36 Pushin:36 Heart: A period of decreased variability and a few lates triggered hastening of pushing after another check to find her completely dilated. The variability improved with pushing and there was excellent progress. heart tones during second stage were category 2 with variables intermittently, moderate variability through out. Delivery Details Delivery Date: 12/27/24 Delivery Time: 00:19 Route of delivery: Infant Gender: Male Infant Viability: Alive; Heart Rate Present Position at Delivery: OA Delivery Details: Patient was admitted for IOL and progressed with induction methods. See note above. SROM noted at 0157 11/26/24 with clear fluid. Patient was complete at 2336 and pushing at 2336. of a viable male at 0019 in semifowlers. Vertex delivered OA. One nuchal cord that baby delivered through without complication. No shoulder dystocia. Body delivered easily and without incident. passed to mothers abdomen with a vigorous cry. Cord was clamped and cut at > 5 minutes. APGARS were 8 at one minute and 8 at five minutes respectively. Mouth was bulb suctioned. Intact placenta with a 3 vessel cord delivered spontaneously at 0026. Fundus firm. 2nd identified and repaired in typical fashion. QBL 316 cc. Mother and baby stable; mother plans to breastfeed. Infant weight 7#14 oz.? 1 Minute Interval Total Score: 8 5 Minute Interval Total Score: 8 Additional Details Shoulder Dystocia: No Placenta Delivery Time: 00:26 Placental Delivery Description: Spontaneous Delivery repair: Vicryl Procedure Done: Global Blood Loss: 316 Laceration: Perineal - 2nd Degree Episiotomy Description: None Blood Loss Measurement Type: QBL Bakri Used: No Sponge/Need Count Correct: Yes Cord Vessel Description: 3 Vessels, Nuchal Cord and Delivered through Event Summary Status: Mother and were stable after delivery. Disposition: floor
[2024-12-27 01:06] LABS: Hematocrit* 35.5 % (33.0-51.0); Hemoglobin* 12.0 gm/dL (12.0-16.0); Mean Corpuscular HGB Conc 34 gm/dL (32-36); Mean Corpuscular Hemoglobin 31 pg (26-34); Mean Corpuscular Volume 91 fL (80-100); Red Blood Count* 3.92 m/uL (4.00-5.20); White Blood Count* 21.99 K/uL (4.50-11.00)
[2024-12-27 01:08] LABS: Slide Review Reflex No
[2024-12-27 01:26] LABS: Alanine Aminotransferase* 21 U/L (4-35); Aspartate Amino Transferase* 34 U/L (12-35); Blood Urea Nitrogen* 15 mg/dL (5-24); Creatinine* 0.7 mg/dL (0.5-1.5); Est. Creatinine Clearance* 103.32; Estimated Glomerular Filt Rate 121 ml/min
[2024-12-27] MEDS: IBUPROFEN 600 MG TABLET PO ×3 (02:10→17:25)
[2024-12-27] MEDS: ACETAMINOPHEN 500 MG TABLET 1000 MG PO ×3 (06:02→21:15)
[2024-12-27 06:54] LABS: Hematocrit* 34.9 % (33.0-51.0); Hemoglobin* 12.0 gm/dL (12.0-16.0); Mean Corpuscular HGB Conc 34 gm/dL (32-36); Mean Corpuscular Hemoglobin 31 pg (26-34); Mean Corpuscular Volume 90 fL (80-100); Red Blood Count* 3.88 m/uL (4.00-5.20); White Blood Count* 22.37 K/uL (4.50-11.00)
[2024-12-27 06:56] LABS: Slide Review Reflex No
[2024-12-27 07:18] LABS: Alanine Aminotransferase* 16 U/L (4-35); Aspartate Amino Transferase* 33 U/L (12-35); Blood Urea Nitrogen* 14 mg/dL (5-24); Creatinine* 0.6 mg/dL (0.5-1.5); Est. Creatinine Clearance* 120.54; Estimated Glomerular Filt Rate 125 ml/min
[2024-12-27] MEDS: DOCUSATE SODIUM 100 MG CAPSULE PO (08:46)
[2024-12-27] MEDS: LACTATED RINGERS 1000 ML 1,000 ML 75 ML IV (12:00)
[2024-12-27 13:08] LABS: Hematocrit* 31.2 % (33.0-51.0); Hemoglobin* 10.6 gm/dL (12.0-16.0); Mean Corpuscular HGB Conc 34 gm/dL (32-36); Mean Corpuscular Hemoglobin 31 pg (26-34); Mean Corpuscular Volume 92 fL (80-100); Red Blood Count* 3.41 m/uL (4.00-5.20); White Blood Count* 15.89 K/uL (4.50-11.00)
[2024-12-27 13:12] LABS: Slide Review Reflex No
[2024-12-27 13:31] LABS: Alanine Aminotransferase* 15 U/L (4-35); Aspartate Amino Transferase* 33 U/L (12-35); Blood Urea Nitrogen* 12 mg/dL (5-24); Creatinine* 0.6 mg/dL (0.5-1.5); Est. Creatinine Clearance* 120.54; Estimated Glomerular Filt Rate 125 ml/min
--- NOTE | 2024-12-27 13:54 | PM.OBPNVD1 ---
OB - PN:Subj Subjective Time Seen by Provider: 09:00 Date Seen: 12/27/24 Narrative: Patient is a 29 y/o G1, now P1 who had an on 12/27/24 at 0019. She was diagnosed with pre-eclampsia with severe features based on severe ranging blood pressures requiring IV antihypertensive treatment. She is current on magnesium sulfate for seizure prophylaxis Overnight patient had no complaints. Her pain is well controlled on oral pain medications. She is tolerating a regular diet. She has passed flatus. She is ambulating without difficulty. Lochia is scant. She is urinating with beck. Patient denies chest pain, SOB, n/v, headache, RUQ pain, vision changes, dizziness. OB - PN: Obj Exam Physical Exam: Vital signs: Temp Pulse Resp BP Pulse Ox O2 Del Method 97.7 F 89 16 127/85 97 Room Air 12/27/24 08:40 12/27/24 13:12 12/27/24 13:12 12/27/24 13:12 12/27/24 13:12 12/27/24 13:12 Narrative: Physical exam: General: No acute distress Psych: Alert and oriented x4, full affect HEENT: Normocephalic, atraumatic Heart: Regular rate and rhythm, no murmur rub or gallop Lungs: Clear to auscultation bilaterally Abdomen: Normoactive bowel sounds, soft, no tenderness, rebound, or guarding, no masses, no hepatosplenomegaly, no hernias Skin: No lesions or rashes Lower extremities: 2+ bilateral lower extremity edema Pelvic exam: Scant lochia OB - PN: Obj Data Labs Labs: Laboratory Results - last 24 hr 12/26/24 12/26/24 12/27/24 18:22 22:12 01:00 WBC 21.78 H 21.99 H RBC 4.37 3.92 L Hgb 13.5 12.0 Hct 39.3 35.5 MCV 90 91 MCH 31 31 MCHC 34 34 Plt Count 150 136 L BUN 13 15 Creatinine 0.6 0.7 Estimated Creat Clear 120.54 103.32 Estimated GFR 125 121 Magnesium 4.7 H* AST 31 34 ALT 19 21 Urine Creatinine 60.6 Protein/Creatinin Ratio 1.07 H Urine Total Protein 65 12/27/24 12/27/24 06:47 13:03 WBC 22.37 H 15.89 H RBC 3.88 L 3.41 L Hgb 12.0 10.6 L Hct 34.9 31.2 L MCV 90 92 MCH 31 31 MCHC 34 34 Plt Count 133 L 123 L BUN 14 12 Creatinine 0.6 0.6 Estimated Creat Clear 120.54 120.54 Estimated GFR 125 125 Magnesium 5.4 H* 5.2 H* AST 33 33 ALT 16 15 Urine Creatinine Protein/Creatinin Ratio Urine Total Protein OB - PN: A/P Delivery Assessment and Plan (1) Preeclampsia, severe: Status: Acute Assessment and Plan: Pre-Eclampsia with severe features - Based on severe ranging blood pressures requiring IV antihypertensive. - BPs after delivery has been 110-130s/50-80s - Symptoms: Denies - Magnesium: currently on Magnesium for seizure ppx, plan to start in active labor, etc - IV antihypertensives: currently not indicated - PO antihypertensives: currently not indicated - Pre-eclampsia labs on 12/27/24: Hgb 10.5 Plt 123 Cr 0.6 Uric ALT 15 AST 33 - UOP: Adequate. 0.97 cc/kg/hr
[2024-12-27] MEDS: MAGNESIUM Infusion 40 GM/1,000 ML IV.SOLN IVPB (14:14)
[2024-12-27 19:01] LABS: Hematocrit* 33.6 % (33.0-51.0); Hemoglobin* 11.3 gm/dL (12.0-16.0); Mean Corpuscular HGB Conc 34 gm/dL (32-36); Mean Corpuscular Hemoglobin 31 pg (26-34); Mean Corpuscular Volume 92 fL (80-100); Red Blood Count* 3.66 m/uL (4.00-5.20); White Blood Count* 15.57 K/uL (4.50-11.00)
[2024-12-27 19:03] LABS: Slide Review Reflex No
[2024-12-27 19:22] LABS: Alanine Aminotransferase* 17 U/L (4-35); Aspartate Amino Transferase* 38 U/L (12-35); Blood Urea Nitrogen* 11 mg/dL (5-24); Creatinine* 0.6 mg/dL (0.5-1.5); Est. Creatinine Clearance* 120.54; Estimated Glomerular Filt Rate 125 ml/min
[2024-12-28] VITALS (8 sets, daily range): BP systolic 122–157; BP diastolic 79–89; PULSE 73–93; RESP 16–18; TEMP 36.8–37; O2SAT 97–99
[2024-12-28 00:01] LABS: Hematocrit* 33.4 % (33.0-51.0); Hemoglobin* 11.2 gm/dL (12.0-16.0); Mean Corpuscular HGB Conc 34 gm/dL (32-36); Mean Corpuscular Hemoglobin 31 pg (26-34); Mean Corpuscular Volume 92 fL (80-100); Red Blood Count* 3.64 m/uL (4.00-5.20); White Blood Count* 15.52 K/uL (4.50-11.00)
[2024-12-28 00:03] LABS: Slide Review Reflex No
[2024-12-28 00:22] LABS: Alanine Aminotransferase* 16 U/L (4-35); Aspartate Amino Transferase* 36 U/L (12-35); Blood Urea Nitrogen* 10 mg/dL (5-24); Creatinine* 0.5 mg/dL (0.5-1.5); Est. Creatinine Clearance* 144.65; Estimated Glomerular Filt Rate 131 ml/min
[2024-12-28] MEDS: IBUPROFEN 600 MG TABLET PO ×4 (00:35→23:07)
[2024-12-28] MEDS: ACETAMINOPHEN 500 MG TABLET 1000 MG PO ×3 (05:07→19:41)
[2024-12-28 05:16] LABS: Hematocrit* 32.8 % (33.0-51.0); Hemoglobin* 10.9 gm/dL (12.0-16.0); Mean Corpuscular HGB Conc 33 gm/dL (32-36); Mean Corpuscular Hemoglobin 31 pg (26-34); Mean Corpuscular Volume 93 fL (80-100); Red Blood Count* 3.54 m/uL (4.00-5.20); White Blood Count* 13.58 K/uL (4.50-11.00)
[2024-12-28 05:19] LABS: Slide Review Reflex No
[2024-12-28 05:25] LABS: Blood Urea Nitrogen* 10 mg/dL (5-24); Creatinine* 0.5 mg/dL (0.5-1.5); Est. Creatinine Clearance* 144.65; Estimated Glomerular Filt Rate 131 ml/min
[2024-12-28 05:26] LABS: Alanine Aminotransferase* 16 U/L (4-35); Aspartate Amino Transferase* 35 U/L (12-35)
[2024-12-28 07:43] LABS: Glucose 2 Hour 91 mg/dl (70-155)
--- NOTE | 2024-12-28 09:00 | PM.OBPNVD1 ---
OB - PN:Subj Subjective Date Seen: 12/28/24 Interval history: Mary is a 29 yo G1 now P1-0-0-1 woman who is s/p on 12/27/24 at 39 1/7 weeks' gestation in the setting of IOL for GDMA1. She was diagnosed with preeclampsia with severe features during her intrapartum course based on severe range BP. She had a second-degree laceration. She was maintained on magnesium sulfate until 12:36 AM this morning. Narrative: She is feeling better since cessation of magnesium. Leg swelling has decreased. She is ambulating. Denies heavy bleeding. She is well. OB - PN: Obj Exam Physical Exam: Vital signs: Temp Pulse Resp BP Pulse Ox O2 Del Method 98.5 F 82 16 130/85 98 Room Air 12/28/24 08:35 12/28/24 08:35 12/28/24 08:35 12/28/24 08:35 12/28/24 08:35 12/28/24 08:35 She has been normotensive off medication for the last 24 hours. Greater than 3 L of urine output in last 24 hours Narrative: Physical exam: Vitals as noted above. General: No acute distress Psych: Alert and oriented x 3, full affect HEENT: Normocephalic, atraumatic Abdomen: Soft, nontender, fundus below umbilicus Heart: Regular rate and rhythm, no murmur rub or gallop Lungs: Clear to auscultation bilaterally Lower extremities: 4+ edema bilateral feet, 3+ edema of bilateral lower legs OB - PN: Obj Data Labs Labs: Laboratory Results - last 24 hr 12/25/24 12/27/24 12/27/24 21:28 13:03 18:53 WBC 15.89 H 15.57 H RBC 3.41 L 3.66 L Hgb 10.6 L 11.3 L Hct 31.2 L 33.6 MCV 92 92 MCH 31 31 MCHC 34 34 Plt Count 123 L 141 BUN 12 11 Creatinine 0.6 0.6 Estimated Creat Clear 120.54 120.54 Estimated GFR 125 125 Glucose Tolerance Magnesium 5.2 H* 5.3 H* AST 33 38 H ALT 15 17 RPR Screen Non Reactive 12/27/24 12/28/24 23:54 05:05 WBC 15.52 H 13.58 H RBC 3.64 L 3.54 L Hgb 11.2 L 10.9 L Hct 33.4 32.8 L MCV 92 93 MCH 31 31 MCHC 34 33 Plt Count 141 134 L BUN 10 10 Creatinine 0.5 0.5 Estimated Creat Clear 144.65 144.65 Estimated GFR 131 131 Glucose Tolerance Magnesium AST 36 H 35 ALT 16 16 RPR Screen OB - PN: A/P Delivery Assessment and Plan (1) Preeclampsia, severe: Status: Acute Assessment and Plan: Normotensive and with normal HELLP labs at last check. Continue to monitor blood pressures throughout the remainder of her hospital course. (2) GDM, class A1: Status: Acute Assessment and Plan: She passed her 2 hour glucose tolerance test today. (3) (normal spontaneous vaginal delivery): Status: Acute Plan day: 1 Comments: Anticipate discharge tomorrow provided that she remains normotensive.
--- NOTE | 2024-12-28 11:04 | PM.ANPOST ---
Post Anesthesia Note Post Anesthesia Note Patient seen: Inpatient Respiratory Status: adequate Cardiovascular Status: adequate Mental Status: baseline Pain: adequate Temp: baseline Anesthetic awareness: N/A Complications: none Follow care: none
[2024-12-28] MEDS: DOCUSATE SODIUM 100 MG CAPSULE PO (17:11)
[2024-12-28 18:05] LABS: Alanine Aminotransferase* 21 U/L (4-35); Aspartate Amino Transferase* 38 U/L (12-35); Blood Urea Nitrogen* 12 mg/dL (5-24); Creatinine* 0.5 mg/dL (0.5-1.5); Est. Creatinine Clearance* 144.65; Estimated Glomerular Filt Rate 131 ml/min
[2024-12-28 18:12] LABS: Hematocrit* 32.3 % (33.0-51.0); Hemoglobin* 10.7 gm/dL (12.0-16.0); Immature Granulocytes Abs Auto 0.20 K/uL (0.00-0.30); Immature Granulocytes Pct Auto 1.6 %; Mean Corpuscular HGB Conc 33 gm/dL (32-36); Mean Corpuscular Hemoglobin 31 pg (26-34); Mean Corpuscular Volume 93 fL (80-100); RDW Coefficient of Variation % 12.8 % (11.5-15.5); Red Blood Count* 3.48 m/uL (4.00-5.20); White Blood Count* 12.35 K/uL (4.50-11.00)
[2024-12-28 18:54] LABS: Lymphocytes Absolute Auto 2.20 K/uL (0.90-2.90); Slide Review Reflex No
[2024-12-29] VITALS (10 sets, daily range): BP systolic 84–148; BP diastolic 66–93; PULSE 81–85; RESP 16–18; TEMP 36.8–36.9; O2SAT 98–99
[2024-12-29] MEDS: ACETAMINOPHEN 500 MG TABLET 1000 MG PO (03:48)
[2024-12-29] MEDS: IBUPROFEN 600 MG TABLET PO (09:22)
[2024-12-29] MEDS: DOCUSATE SODIUM 100 MG CAPSULE PO (09:23)
--- NOTE | 2024-12-29 10:04 | P.DS_ITS ---
DS: Providers Provider Time Seen by Provider: 10:04 Date Seen: 12/29/24 Date of admission: 12/25/24 20:42 Primary care physician: Not a Local Provider Admitting Clinician: Nathalia Correa CNM Attending Physician on discharge: Nathalia Correa CNM Date of Discharge: 12/29/24 Exam Narrative: Exam Narrative: General: No acute distress Psych: Alert and oriented x4, full affect HEENT: Normocephalic, atraumatic Heart: Regular rate and rhythm, no murmur rub or gallop Lungs: Clear to auscultation bilaterally Abdomen: Normoactive bowel sounds, soft, no tenderness, rebound, or guarding, no masses, no hepatosplenomegaly, no hernias Skin: No lesions or rashes Lower extremities: 2+ bilateral lower extremity edema Pelvic exam: Scant lochia Const: Vital Signs, click to edit/add: Vital Signs - 24 hr 12/28/24 12:30 12/28/24 16:45 12/28/24 19:52 Temperature 98.6 F 98.4 F Pulse Rate [Left P ulse Oximeter] 81 81 Respiratory Rate 16 18 Blood Pressure [Le ft Arm] 128/79 157/89 H 142/82 H Pulse Oximetry 99 97 Oxygen Delivery Me thod Room Air Room Air 12/28/24 20:07 12/28/24 23:07 12/29/24 03:42 Temperature 98.6 F 98.3 F 98.4 F Pulse Rate [Left P ulse Oximeter] 78 74 81 Respiratory Rate 16 18 18 Blood Pressure [Le ft Arm] 122/80 128/82 148/93 H Pulse Oximetry 99 98 99 Oxygen Delivery Me thod Room Air Room Air Room Air 12/29/24 03:58 12/29/24 07:30 Temperature 98.3 F Pulse Rate [Left P ulse Oximeter] 81 Respiratory Rate 16 Blood Pressure [Le ft Arm] 138/88 84/66 L Pulse Oximetry 98 Oxygen Delivery Me thod Room Air OB - DS: Summary Hospital Course Hospital Course: The patient is a 29 year old G1 P 1001 at 39.3 weeks gestation that was admitted to the Center on 12/25/24 for IOL for GDMA1. She had an uncomplicated vaginal delivery. She delivered a viable male . Intrapartum, she developed preeclampsia with severe features based on severe range in blood pressures from her IV antihypertensive treatment. She was subsequently placed on magnesium sulfate for seizure prophylaxis. After under 24 hours of magnesium sulfate, she had elevated blood pressures off the magnesium. Nifedipine 30 mg XL was started. Blood pressure is appropriately controlled on new antihypertensive. She is . the patient has done well. Baby is currently getting the bili light. Overnight patient had no complaints. Her pain is well controlled on oral medications. She is tolerating a regular. She has passed flatus. She is ambulating without difficulty. Lochia is scant. She is urinating without beck. Patient denies chest pain, SOB, n/v, headache, RUQ pain, vision changes, dizziness. [place] Infant Gender: Male Time Spent with Patient Time attestation: Total time spent providing and/or coordinating discharge services: Discharge Plan Discharge Disposition: Home, Self-Care Date of Admission: 12/25/24 20:42 Attending Provider on Discharge: Kelli Pearson Consult[employer] Providers: Deborah Kwon Primary Care Provider: Provider,Not a Local Condition: Stable Anticipated Discharge Date/Time: 12/29/24 13:42 Discharge Medications: New Dermoplast (with menthol) 20-0.5 % Aerosol 1 spray topical QID PRN30 Days Qty: 78 0RF acetaminophen 500 mg Tablet 1,000 mg PO Q6H PRN30 Days Qty: 30 0RF docusate sodium 100 mg Capsule 100 mg PO DAILY 30 Days Qty: 30 0RF ibuprofen 600 mg Tablet 600 mg PO Q6H PRN30 Days Qty: 30 0RF Lanolin (HPA) 100 % Cream 1 applic topical Q1H PRNQty: 21 0RF nifedipine 30 mg Tablet Extended Release 30 mg PO DAILY 30 Days Qty: 30 0RF simethicone 80 mg Tablet,Chewable 80 - 160 mg PO Q4H PRN (Reason: gas) 30 Days Qty: 60 0RF Continued One-A-Day -1 27 mg iron- 800 mcg-235 mg capsule 1 cap PO DAILY Discontinued aspirin 81 mg tablet,chewable 81 mg PO QDAY Discharge Orders: Discharge Order (Routine); Ordered 12/29/24 Ordered By: Kelli Pearson Patient Education: Preeclampsia and Eclampsia After Delivery (GEN), Vaginal Delivery (DC) Follow Up Appointments: Provider,Not a Local [Primary Care Provider, Family Practice] Forms: [facility] Info Instructions Discharge Comments: Discharge instructions were reviewed with the patient including signs and symptoms of infection and home going medications. Lifting Restrictions: 20 pounds for [address] while taking narcotic pain medication: Approximately 1 week. Off Work or School for 6 weeks. Nothing vaginally for 6 weeks Symptoms to report to doctor: -Bleeding that saturates more than one pad per hour ?-Passing clots larger than the size of a golf ball ?-Pain not relieved by prescribed medication ?-Fever above 100.4 degrees Fahrenheit ?-A foul vaginal odor ?-Difficulty in emotions, mood and functions ?-Thoughts of hurting yourself and/or ?-Painful, reddened area in your breast ?-Any drainage, redness or tenderness in your IV/epidural site ?-Severe headache that doesn't improve after taking medications ?-Changes in vision, including temporary loss of vision, blurred vision, and/or light sensitivity ?-Upper abdominal pain (usually under ribs on the right side) ?-Decrease in urination or painful, frequent urinating ?-Chest pain ?-Shortness of breath ?-Tenderness or pain with redness and/swelling in the calf(s) of your leg Follow Up [facility] a [facility] provider: 3-5 days for blood pressure check due to severe pre-eclampsia on medication 2 week visit: Answer concerns for care, screen for anxiety/depression. 6 week visit: Annual exam. consultation services are available to all mothers and babies for the first year after delivery.? To make an appointment, please call [phone].
== END 2024-12-29 18:06 | disposition home or self-care (01) | DRG 807 ==
PROVIDERS: Midwife; Obstetrics & Gynecology; Admitting Provider Advanced Practice Midwife; Visit Provider Advanced Practice Midwife
DX: O24.420 Gestational diabetes mellitus in childbirth, diet controlled (principal); Z37.0 Single live birth; O14.14 Severe pre-eclampsia complicating childbirth; I95.89 Other hypotension; O36.63X0 Maternal care for excessive fetal growth, third trimester, not applicable or unspecified; O99.214 Obesity complicating childbirth; O70.1 Second degree perineal laceration during delivery; Z3A.38 38 weeks gestation of pregnancy
CPT/HCPCS: 01967; 36415; 59200; 82565; 82570; 82947; 82950; 82962; 83735; 84156; 84450; 84460; 84520; 85018; 85025; 85027; 86592; 86850; 86900; 86901; 88307; 94761; A9270; J2270; J2405; J2795; J3475; J7120

== ENCOUNTER 2025-02-04 11:26 | Outpatient (CLI) | payer OTHER, SELFPAY ==
[2025-02-09 11:09] LABS: Pap Test Digital Imaging Done
[2025-02-11 05:06] LABS: HPV Source Cervix
== END 2025-02-04 11:27 | disposition home or self-care (01) ==
PROVIDERS: Visit Provider Physician Assistant
DX: Z12.4 Encounter for screening for malignant neoplasm of cervix (principal)
CPT/HCPCS: 87624; 87625; 88141; 88142; 88175